=== PATIENT | male | born 1985 | race Caucasian/White ===

== ENCOUNTER 2021-04-05 09:57 | Observation (INO) ==
[2021-04-05] MEDS ORDERED: *HR* HYDROcodone/Acet 5/325 mg TABLET PO PRN ×2 (13:10→13:13)
[2021-04-05] MEDS ORDERED: Melatonin 3 MG TABLET PO PRN (13:10)
[2021-04-05] MEDS ORDERED: MOM Conc 10 ML UD.LIQ PO PRN (13:10)
[2021-04-05] MEDS ORDERED: Mag Hydrox/Al Hydrox/Simeth 30 ML UDC PO PRN (13:10)
[2021-04-05] MEDS ORDERED: Naloxone 0.4 MG/ML INJ IVP PRN (13:10)
[2021-04-05] MEDS ORDERED: Ondansetron ODT 4 MG TAB.RAPDIS SL PRN (13:10)
[2021-04-05] MEDS ORDERED: Acetaminophen 325 MG TABLET PO PRN (13:10)
[2021-04-05] MEDS ORDERED: Ibuprofen 400 MG TABLET PO PRN (13:10)
[2021-04-05] MEDS ORDERED: *HR* Rivaroxaban 10 MG TABLET PO SCH (13:30)
[2021-04-05] MEDS ORDERED: Perflutren Lipid Microsphere 1.3 ML in 0.9 % Sodium Chloride 8.7 ML IVP PRN (14:07)
[2021-04-05] MEDS: *HR* HYDROcodone/Acet 5/325 mg TABLET PO PRN ×2 (14:14→20:22)
[2021-04-05] MEDS: Gabapentin 300 MG CAPSULE PO SCH ×2 (15:24→20:13)
[2021-04-05] MEDS: Nicotine 21 MG PATCH.TD24 TD SCH (15:25)
[2021-04-05] MEDS: levoFLOXacin 500 MG/100 ML 500 MG/100 ML BAG IVPB SCH (15:26)
[2021-04-05 15:58] LABS: Bilirubin,Urine Negative (Negative); Blood,Urine Negative (Negative); Clarity,Urine Clear (Clear); Color,Urine Yellow (Yellow); Glucose,Urine (UA) Normal (Normal); Ketones,Urine Negative (Negative); Leukocyte Esterase,Urine Negative (Negative); Nitrite,Urine Negative (Negative); PH,Urine 6.5 pH Units (5.0-8.0); Protein,Urine Negative (Neg-Trace); Urobilinogen,Urine Normal (Normal)
[2021-04-05] MEDS: ARIPiprazole 10 MG TABLET PO SCH (16:06)
[2021-04-05] MEDS ORDERED: Enoxaparin Weight Dosing SQ SCH (18:00)
[2021-04-06 04:48] LABS: Basophils % 0.2 %; Hematocrit 49.2 % (37.5-50.1); Hemoglobin 17.3 g/dL (12.9-16.9); Immature Granulocytes % 0.5 % (0-4); Lymphocytes # 0.9 K/mcL (0.6-4.6); Lymphocytes % 13.7 %; Mean Corpuscular HGB Conc 35.2 g/dL (31.6-35.5); Mean Corpuscular Hemoglobin 31.7 pg (28.0-33.3); Mean Corpuscular Volume 90.3 fL (83.0-100.0); Mean Platelet Volume 9.8 fL (9.4-12.4); Monocytes # 0.2 K/mcL (0.0-1.3); Monocytes % 3.6 %; Neutrophils # 5.4 K/mcL (1.6-8.9); Platelet Count 191 K/mcL (140-400); Red Blood Count 5.45 M/mcL (4.19-5.50); Red Cell Distribution Width 11.7 % (11.5-14.5); White Blood Count 6.6 K/mcL (4.3-11.1)
[2021-04-06 05:04] LABS: Alanine Aminotransferase 56 Units/L (7-52); Albumin 4.1 g/dL (3.5-5.7); Albumin/Globulin Ratio 1.2 (1.1-2.2); Alkaline Phosphatase 96 Units/L (34-104); Aspartate Amino Transferase 23 Units/L (13-39); BUN/Creatinine Ratio 12 (6-26); Blood Urea Nitrogen 12 mg/dL (6-20); Calcium 9.3 mg/dL (8.6-10.3); Carbon Dioxide 29 mEq/L (23-29); Chloride 103 mEq/L (98-107); Globulin 3.4 g/dL (2.4-3.5); Glucose 132 mg/dL (70-105); Magnesium 2.3 mg/dL (1.6-2.6); Osmolality,Calculated 284 (280-300); Phosphorous 2.6 mg/dL (2.7-4.5); Potassium 4.6 mEq/L (3.5-5.1); Sodium 136 mEq/L (136-145); Total Protein 7.5 g/dL (6.4-8.9); eGFR For African Americans > 60 (> 60); eGFR For Non-African Americans > 60 (> 60)
[2021-04-06 06:45] VITALS: BP 131/86; PULSE 63; RESP 18; TEMP 97.6
[2021-04-06 08:44] VITALS: O2SAT 99
[2021-04-06] MEDS ORDERED: ARIPiprazole 10 MG TABLET PO SCH (09:00)
[2021-04-06] MEDS ORDERED: *HR* Rivaroxaban 15 MG TABLET PO SCH ×2 (09:00→11:15)
[2021-04-06] MEDS: ARIPiprazole 10 MG TABLET PO SCH (09:27)
[2021-04-06] MEDS: Gabapentin 300 MG CAPSULE PO SCH (09:27)
[2021-04-06] MEDS: levoFLOXacin 500 MG/100 ML 500 MG/100 ML BAG IVPB SCH (09:28)
[2021-04-06 09:49] LABS: C-Reactive Protein < 5 mg/L (Less than 10)
[2021-04-06] MEDS: Nicotine 21 MG PATCH.TD24 TD SCH (10:00)
[2021-04-06 10:07] LABS: Ferritin 234 ng/mL (20-250)
[2021-04-06] MEDS ORDERED: Nicotine 21 MG PATCH.TD24 TD SCH (13:13)
== END 2021-04-06 14:41 | disposition left against medical advice (07) ==
LOC: INTOOBSV 12:18 → INPGRE 12:18
PROVIDERS: ADMIT Family Medicine; ATTEND Family Medicine